=== PATIENT | male | born 1955 | race Caucasian/White ===

== ENCOUNTER 2019-08-25 22:56 | Emergency (ER) | payer MEDICAID ==
[~2019-08-25] VITALS: Ht 170.2 cm; Wt 88.1 kg
[2019-08-25 23:06] VITALS: Ht 170.2 cm; Wt 88.1 kg
[2019-08-26 00:30] LABS: BASOPHIL % 0.5 % (0-2); PLATELET COUNT 160 x10^3mcL (130-400); RED CELL DISTRIBUTION WIDTH 13.8 % (11.5-14.5)
[2019-08-26 00:41] LABS: CALCIUM 8.1 mg/dL (8.5-10.1); CARBON DIOXIDE 27.6 mmol/L (21-32); CREATININE SERUM 1.3 mg/dL (0.7-1.3); POTASSIUM SERUM 3.5 mmol/L (3.5-5.1)
[2019-08-26 00:46] LABS: ALBUMIN 3.7 g/dL (3.4-5.0); BILIRUBIN TOTAL 0.5 mg/dL (0.20-1.00); TOTAL PROTEIN, SERUM 7.2 g/dL (6.4-8.2)
[2019-08-26 01:21] VITALS: BP 133/93
== END 2019-08-26 01:21 | disposition home or self-care (01) ==
LOC: ED 22:56
PROVIDERS: Emergency Medicine
DX: R07.89 Other chest pain (principal); I10 Essential (primary) hypertension
CPT/HCPCS: Q0092

== ENCOUNTER 2019-10-21 19:52 | Emergency (ER) | payer MEDICAID, SELFPAY ==
[~2019-10-21] VITALS: Ht 172.7 cm; Wt 83.0 kg
[2019-10-21 19:53] VITALS: Ht 172.7 cm; Wt 83.0 kg
[2019-10-21 20:47] VITALS: BP 131/89
== END 2019-10-21 20:47 | disposition home or self-care (01) ==
LOC: ED 19:52
DX: R19.7 Diarrhea, unspecified (principal); I10 Essential (primary) hypertension; E78.00 Pure hypercholesterolemia, unspecified; Z20.828 Contact with and (suspected) exposure to other viral communicable diseases; Z88.6 Allergy status to analgesic agent
CPT/HCPCS: 87046; 87046-59; U0003-CS